=== PATIENT | female | born 1990 ===

== ENCOUNTER 2016-05-23 17:30 | Emergency (ER) | payer SELFPAY ==
[2016-05-23 17:55] VITALS: BMI 32.2
[2016-05-23 19:22] LABS: HEMATOCRIT 33.1 % (34.0-47.0); MEAN CELL VOLUME 77.4 fl (81.0-99.0); MEAN CORPUSCULAR HEMOGLOBIN 25.6 pg (27.0-31.0); MEAN CORPUSCULAR HGB CONC 33.1 g/dL (33.0-37.0); RED CELL DISTRIBUTION WIDTH 14.9 % (11.5-14.5); WHITE BLOOD COUNT 9.1 K/uL (4.8-10.8)
[2016-05-23 19:36] LABS: RBC URINE 47 /hpf (0-3); URINE BACTERIA MOD (<OCC); URINE BILIRUBIN NEGATIVE (NEGATIVE); URINE BLOOD SMALL (NEGATIVE); URINE COLOR YELLOW (YELLOW); URINE GLUCOSE (UA) NEG (Normal); URINE KETONE NEGATIVE (NEGATIVE); URINE LEUKOCYTE ESTERASE LARGE Leu/uL (Negative); URINE PROTEIN >=500 mg/dL (NEGATIVE); URINE UROBILINOGEN 0.2-1.0 mg/dL (0.2-1.0); WBC URINE 77 /hpf (0-5)
[2016-05-23 19:54] LABS: ALB/GLOB RATIO 0.8 (1.0-2.1); ALKALINE PHOSPHATASE 213 U/L (38-126); ALT/SGPT 22 U/L (9-52); AST/SGOT 27 U/L (14-36); BILIRUBIN,TOTAL 0.3 mg/dl (0.2-1.3); BLOOD UREA NITROGEN 9 mg/dl (7-17); CALCIUM 8.1 mg/dL (8.4-10.2); CARBON DIOXIDE 21 mmol/L (22-30); CHLORIDE 101 mmol/L (98-107); GFR AFRICAN-AMERICAN > 60; GLUCOSE,RANDOM 78 mg/dL (65-105); POTASSIUM 4.1 MMOL/L (3.6-5.0); SODIUM 133 mmol/l (132-148); TOTAL PROTEIN 6.4 G/DL (6.3-8.2); URIC ACID 4.8 mg/Dl (2.2-7.5)
== END 2016-05-24 00:40 | disposition home or self-care (01) ==
LOC: H.EROB2 17:30
DX: O13.3 Gestational [pregnancy-induced] hypertension without significant proteinuria, third trimester (principal); O23.43 Unspecified infection of urinary tract in pregnancy, third trimester; Z3A.36 36 weeks gestation of pregnancy; O26.93 Pregnancy related conditions, unspecified, third trimester; B37.3 Candidiasis of vulva and vagina; R80.9 Proteinuria, unspecified

== ENCOUNTER 2016-05-30 16:03 | Inpatient (IN) | payer MEDICAID, SELFPAY ==
[2016-05-30] MEDS: Lactated Ringer's 1,000 ML IV SCH (17:03)
--- NOTE | 2016-05-30 17:07 | OBADHP ---
Datetime: 05/30/2016 16:52 Admit Comment, IP Provider: Patient is @ 37.5 with pre-eclampsia for induction. Patient was not ed to have multiple BPs over 140/90 last week, 4+ protein in dipstick. 24hr Urine protein = 2186, pat ient reported on/off headaches yesterday, today no headaches. No vag bleeding, leaking, +FM, no ctxns . NO other antepartum issues, GBS negative, no medical problems, taking only vitamins VE= /-2 FHR = 145 mod violet, +accels, no decels TOCO = ctxning Irregularly BPs= 130s-140s/90-100 A/P 1. Patient sent from clinic - notable change in baseline of BPs to multiple documented 140s/90s, 2 4hr Urine protein and 2198 and on/off headaches classify patient as pre-eclamptic. Patient informed t hat will induce patient based on that diagnosis. 2. Admit, IVF, NPO, CMP, CBC, LDH 3. CEFM and TOCO 4. WIll start with cytotec 50mcg PO q 4 hrs Pelvic Type - PN: Adequate Extremities - PN: Abnormal Abdomen - PN: Normal Back - PN: Normal Breast - PN: Normal Lungs - PN: Normal Heart - PN: Normal Thyroid - PN: Normal Neurologic - PN: Normal HEENT - PN: Normal General - PN: Normal FHR - Baseline A Provider: 145 Contraction Comments Provider: Irregular Comments, ACOG Physical Exam: BL extremeties = +1 edema, + 1 B/L reflexes Vital Signs Provider: Reviewed; Within Normal Limits IP Chief Complaint: Signs/Symptoms Gestational HTN NICHD Variability Prov Fetus A: Moderate 6-25bpm NICHD Decel Fetus A IP Provider: None Dilatation, Provider: 1 Effacement, Provider: 50 Station, Provider: -3 Genitourinary Exam: Normal DTRs - PN: Normal EGA AdmitDate IP: 37.5 IP Adm Impression: Term, intrauterine IP Admit Plan: Admit to unit Datetime: 05/23/2016 18:15 IP Hx Assessment: The History has been Reviewed and is Current NICHD Accel Fetus A IP Provider: [id number] FHR Category Provider Fetus A: Category I
[2016-05-30 17:23] LABS: BASO % 0.5 % (0.0-2.0); EOS % 0.3 % (0.0-4.0); HEMATOCRIT 35.7 % (34.0-47.0); LYMPH # 2.3 K/uL (1.0-4.3); LYMPH % 24.7 % (20.0-40.0); MEAN CELL VOLUME 76.8 fl (81.0-99.0); MEAN CORPUSCULAR HEMOGLOBIN 24.7 pg (27.0-31.0); MEAN CORPUSCULAR HGB CONC 32.2 g/dL (33.0-37.0); MEAN PLATELET VOLUME 10.3 fl (7.2-11.7); MONO # 0.8 K/uL (0.0-0.8); MONO % 8.4 % (0.0-10.0); NEUT # 6.1 K/uL (1.8-7.0); NEUT % 66.1 % (50.0-75.0); RED CELL DISTRIBUTION WIDTH 15.2 % (11.5-14.5); WHITE BLOOD COUNT 9.2 K/uL (4.8-10.8)
[2016-05-30 17:35] VITALS: BP 137/102; PULSE 97; RESP 20; TEMP 98.1; O2SAT 100
[2016-05-30 17:35] LABS: ALB/GLOB RATIO 0.8 (1.0-2.1); ALKALINE PHOSPHATASE 211 U/L (38-126); ALT/SGPT 25 U/L (9-52); AST/SGOT 25 U/L (14-36); BILIRUBIN,TOTAL 0.4 mg/dl (0.2-1.3); BLOOD UREA NITROGEN 13 mg/dl (7-17); CALCIUM 8.3 mg/dL (8.4-10.2); CARBON DIOXIDE 21 mmol/L (22-30); CHLORIDE 102 mmol/L (98-107); GFR AFRICAN-AMERICAN > 60; GLUCOSE,RANDOM 85 mg/dL (65-105); POTASSIUM 4.4 MMOL/L (3.6-5.0); SODIUM 135 mmol/l (132-148); TOTAL PROTEIN 6.2 G/DL (6.3-8.2)
[2016-05-30] MEDS ORDERED: Lidocaine 1% Inj (20ml) ONE (19:47)
--- NOTE | 2016-05-30 20:59 | OBHP ---
Datetime: 05/30/2016 16:52 IP Adm Impression: Term, intrauterine IP Admit Plan: Admit to unit Admit Comment, IP Provider: Patient is @ 37.5 with pre-eclampsia for induction. Patient was not ed to have multiple BPs over 140/90 last week, 4+ protein in dipstick. 24hr Urine protein = 2186, pat ient reported on/off headaches yesterday, today no headaches. No vag bleeding, leaking, +FM, no ctxns . NO other antepartum issues, GBS negative, no medical problems, taking only vitamins VE= /-2 FHR = 145 mod violet, +accels, no decels TOCO = ctxning Irregularly BPs= 130s-140s/90-100 Vertex confirmed by presentation A/P 1. Patient sent from clinic - notable change in baseline of BPs to multiple documented 140s/90s, 2 4hr Urine protein and 2198 and on/off headaches classify patient as pre-eclamptic. Patient informed t hat will induce patient based on that diagnosis. 2. Admit, IVF, NPO, CMP, CBC, LDH 3. CEFM and TOCO 4. WIll start with cytotec 50mcg PO q 4 hrs Pelvic Type - PN: Adequate Extremities - PN: Abnormal Abdomen - PN: Normal Back - PN: Normal Breast - PN: Normal Lungs - PN: Normal Heart - PN: Normal Thyroid - PN: Normal Neurologic - PN: Normal HEENT - PN: Normal General - PN: Normal Presentation-Admit: Vertex FHR - Baseline A Provider: 145 Contraction Comments Provider: Irregular Comments, ACOG Physical Exam: BL extremeties = +1 edema, + 1 B/L reflexes EGA AdmitDate IP: 37.5 Vital Signs Provider: Reviewed; Within Normal Limits IP Indication for Induction: Gest. HTN/PreEclampsia/Eclampsia IP Chief Complaint: Signs/Symptoms Gestational HTN NICHD Variability Prov Fetus A: Moderate 6-25bpm NICHD Decel Fetus A IP Provider: None Dilatation, Provider: 1 Effacement, Provider: 50 Station, Provider: -3 Genitourinary Exam: Normal DTRs - PN: Normal
[2016-05-31] MEDS: Lactated Ringer's 1,000 ML IV SCH ×6 (03:06→08:43)
[2016-05-31] MEDS ORDERED: Fentanyl/Bupivacaine HCl 250 ML EPI ONE (04:16)
[2016-05-31] MEDS ORDERED: Lactated Ringer's 1,000 ML IV SCH (07:00)
[2016-05-31] MEDS ORDERED: Lidocaine 2% PF (10 ml) Amp ONE (09:58)
[2016-05-31] MEDS ORDERED: Oxycodone/Acetaminophen 5/325 mg Tab PO PRN ×4 (10:03→12:51)
[2016-05-31] MEDS ORDERED: Benzocaine/Menthol SPRAY TOP PRN ×2 (10:03→12:51)
[2016-06-01 08:06] LABS: HEMATOCRIT 28.4 % (34.0-47.0); MEAN CELL VOLUME 77.4 fl (81.0-99.0); MEAN CORPUSCULAR HEMOGLOBIN 24.8 pg (27.0-31.0); RED CELL DISTRIBUTION WIDTH 15.4 % (11.5-14.5); WHITE BLOOD COUNT 13.1 K/uL (4.8-10.8)
[2016-06-01] MEDS ORDERED: Benzocaine/Menthol SPRAY TOP PRN (09:08)
[2016-06-01] MEDS ORDERED: Oxycodone/Acetaminophen 5/325 mg Tab PO PRN ×2 (09:08)
--- NOTE | 2016-06-01 11:12 | OBPPN ---
Datetime: 06/01/2016 07:01 PP Pain Prov: Within normal limits PP Nausea Prov: Denies PP Flatus Prov: Yes PP BM Prov: No PP Breasts Prov: Normal PP Heart Prov: Normal PP Lungs Prov: Normal PP Abdomen/Uterus Prov: Normal PP Lochia Prov: Normal PP Vulva/Perineum Prov: Normal PP CVA Tenderness Prov: Normal PP Extremities Prov: Normal PP Comments Phys Exam Prov: no abdominal tenderness uterus firm packing removed, clots on packing, lochia _menses PP Impression Prov: Normal progression PP Plan Prov: Continue present management PP Progress Note Prov: day 1 Patient doing well this AM. Denies pain at presents, lochia <menses, however still has packing. Sh e has been ambulating without difficulty. Tolerating regular diet. without difficulty. Denies h/a nausea, vomiting. O: As above, BP mildly elevated. Urine output 1410 A/P: 25 y/o s/p with bilateral vaginal lacerations, periurethral lacerations, and perine al lacerations. -Packing removed -PAin management- motrin/percocet -Encouraged . -Encouraged ambulation. Lena Reyes PGY1 Patient was seen with the resident I agree with the note Ambulation regular diet analgesia as needed Vital Signs Provider PP: Reviewed Vital Signs Provider Details PP: BP: 120-140s/70-90s
--- NOTE | 2016-06-02 10:14 | OBPPN ---
Datetime: 06/02/2016 06:55 PP Pain Prov: Within normal limits PP Nausea Prov: Denies PP Flatus Prov: Yes PP BM Prov: Yes PP Breasts Prov: Normal PP Heart Prov: Normal PP Lungs Prov: Normal PP Abdomen/Uterus Prov: Normal PP Lochia Prov: Normal PP Vulva/Perineum Prov: Normal PP CVA Tenderness Prov: Normal PP Extremities Prov: Normal PP Comments Phys Exam Prov: lochia <menses PP Impression Prov: Normal progression PP Plan Prov: Discharge PP Progress Note Prov: day 2 A/P: PPD 2: 25 y/o s/p with bilateral vaginal lacerations, periurethral lacerations, and perineal lacerations. Asymptomatic tachycardia likely secondary to mild anemia. -Pain management- motrin/percocet -Encouraged 15-20 minutes per breast prior to attempting bottle feedings. -Encouraged ambulation. Lena Reyes PGY1 [facility] ADDENDUM: pt seen _ examined by me. s: c/o of tension h/a along occipital region, neck, and rt upper shoulder associated with change i n position. pt states she suffers from these type of h/as due to stress and tension. denies blurred va, scotomata, visual disturbance or ruq pain. she denies palpitation, dizziness assoc with standing up from bed or ambualtion. she denies malaise. states perineal pain is minimal. o: neckache relieved with massage S: Patient doing well this AM. without difficulty. tolerating regular diet, lochia m inimal. Denies h/a nausea, vomiting, chest pain, palpiations, dizziness. O: As above, BP mildly elevated: 120-130s/70-80s, tachycardia. i: ppd2 tension h/a 2nd anemia induced for preeclampsisa p: plan for d/c home later today after further observ of h/a d/c home on _ senokot s d/c motrin- can contribute to increase in bp. pt advised not to take nsaids/motrin. also d/w nurse may take Tylenol ES for h/a andperineal discomfort. IP PP Procedures: None Vital Signs Provider PP: Reviewed Vital Signs Provider Details PP: tachycardic: 102
--- NOTE | 2016-06-02 11:57 | OBDCSUM ---
Datetime: 06/02/2016 07:34 Discharged to, Provider: Home Follow up at, Provider: Dr. Collier at [facility] Disch Instr Activity: Normal activity Disch Instr Diet: Regular Discharge Instructions, Provider: Routine instructions given Discharge Diagnosis, Provider: Term Delivered Discharge Time: 06/02/2016 11:00 Follow up in weeks, Provider: 1 week Disch Referrals: None Contraception discussed, Prov: No Disch Activity Restrictions: No sexual activity; Nothing in vagina - [place], tampons, douche Discharge Comment, Provider: Patient to follow up on June 09, 2016 at 15:[address] Collier at [facility]. Rx for Motrin 600mg q 6hrs Feosol 325mg daily Colace 100mg BID [facility] ADDENDUM: pt seen _ examined by me. s: c/o of tension h/a along occipital region, neck, and rt upper shoulder associated with change i n position. pt states she suffers from these type of h/as due to stress and tension. denies blurred va, scotomata, visual disturbance or ruq pain. she denies palpitation, dizziness assoc with standing up from bed or ambualtion. she denies malaise. states perineal pain is minimal. o: neckache relieved with massage S: Patient doing well this AM. without difficulty. tolerating regular diet, lochia m inimal. Denies h/a nausea, vomiting, chest pain, palpiations, dizziness. O: As above, BP mildly elevated: 120-130s/70-80s, tachycardia. [facility] ADDENDUM i: ppd2 tension h/a 2nd anemia with intermittent increased pulse otherwise asymtomatic induced for preeclampsisa p: plan for d/c home later today after further observ of h/a d/c home on _ senokot s d/c motrin- can contribute to increase in bp. pt advised not to take nsaids/motrin. also d/w nurse may take Tylenol ES for h/a andperineal discomfort.
== END 2016-06-02 15:26 | disposition home or self-care (01) | DRG 372 ==
LOC: H.EROB2 16:03 → H.L&D 16:46 → H.OB/GYN 05-31 12:45
PROVIDERS: ADMIT Obstetrics & Gynecology; ATTEND Obstetrics & Gynecology
PROC: 4A1HXCZ Monitoring of Products of Conception, Cardiac Rate, External Approach (ICD-10-PCS; 2016-05-30)
PROC: 10E0XZZ Delivery of Products of Conception, External Approach (ICD-10-PCS; principal; 2016-05-31)
PROC: 0KQM0ZZ Repair Perineum Muscle, Open Approach (ICD-10-PCS; 2016-05-31)
DX: O14.94 Unspecified pre-eclampsia, complicating childbirth (principal); O99.02 Anemia complicating childbirth; O70.1 Second degree perineal laceration during delivery; Z37.0 Single live birth; Z3A.37 37 weeks gestation of pregnancy